=== PATIENT | female | born 1975 | race Caucasian/White ===

== ENCOUNTER 2020-08-03 17:36 | Emergency (ER) | payer MEDICAID ==
[~2020-08-03] VITALS: Ht 165.1 cm; Wt 66.0 kg
[2020-08-03] MEDS ORDERED: IBUP-2029 MT (18:09)
[2020-08-03] MEDS ORDERED: CYCL5TAB MT (18:11)
[2020-08-03] MEDS ORDERED: KETOROLAC 60MG/2ML VIAL IM ONE (18:15)
[2020-08-03] MEDS ORDERED: CYCLOBENZAPRINE 10MG TABLET PO ONE (18:15)
[2020-08-03 18:41] VITALS: BP 127/80
== END 2020-08-03 19:13 | disposition home or self-care (01) ==
LOC: ER 17:36
DX: S16.1XXA Strain of muscle, fascia and tendon at neck level, initial encounter (principal); G44.209 Tension-type headache, unspecified, not intractable; Y35.893A Legal intervention involving other specified means, suspect injured, initial encounter; Y93.89 Activity, other specified; Y92.89 Other specified places as the place of occurrence of the external cause
CPT/HCPCS: 96372; 99283; J1885; Z7610